=== PATIENT | female | born 1995 | race Hispanic/Latino ===

== ENCOUNTER 2016-08-03 23:46 | Inpatient (IN) | payer OTHER ==
[~2016-08-03] VITALS: Ht 167.6 cm; Wt 98.9 kg
[2016-08-04] MEDS ORDERED: Lactated Ringer's 1,000 ML IV SCH (00:42)
[2016-08-04] MEDS ORDERED: Penicillin G K Inj 5,000,000 UNITS in Dextrose 5% Minibag Plus 100 ML IV ONE (01:30)
[2016-08-04] MEDS ORDERED: Ondansetron 2 mg/mL 2 mL Inj IVPUSH PRN (01:30)
[2016-08-04] MEDS ORDERED: fentaNYL-PF 50 mCg/mL 2 mL Inj IVPUSH PRN (01:30)
[2016-08-04] MEDS ORDERED: Carboprost 250 mCg/mL Inj IM PRN (01:30)
[2016-08-04] MEDS ORDERED: Oxytocin 10 Unit/mL Inj IM PRN (01:30)
[2016-08-04] MEDS ORDERED: Oxytocin 30 Units/500 mL LR 30 UNITS in IV Premix 1 EACH IV PRN (01:30)
[2016-08-04] MEDS ORDERED: Hemorrhage Kit, Post Partum XX ONE (01:30)
[2016-08-04] MEDS ORDERED: Methylergonovine 0.2 mg/mL Inj IM PRN (01:30)
[2016-08-04] MEDS ORDERED: Lactated Ringer's 1,000 ML IV PRN (01:30)
[2016-08-04] MEDS ORDERED: Sodium Chloride LOK Flush 10 mL Syringe IVFLUSH PRN (01:30)
[2016-08-04 01:57] LABS: Mean Corpuscular Hemoglobin 25.2 pg (27.0-35.0); Mean Corpuscular Volume 80.1 fL (81-100)
[2016-08-04] MEDS ORDERED: Hemorrhage Kit, Post Partum XX PRN (02:25)
[2016-08-04] MEDS: Misoprostol 25 mCg/0.25 Tablet VAGINAL SCH ×4 (02:30→16:13)
[2016-08-04] MEDS: Penicillin G K Inj 3,000,000 UNITS in IV Premix 1 EACH IV SCH ×5 (05:58→22:06)
[2016-08-04] MEDS: Lactated Ringer's 1,000 ML IV SCH ×3 (06:30→22:06)
--- NOTE | 2016-08-04 10:10 | HP ---
[address] [address] HISTORY AND PHYSICAL PATIENT: REJI ALLAN : 1995 MR#: [id number] ADMIT: 08/04/2016 JOB ID: [id number] This is an obstetrical patient of Dr. Hampton for whom I am tobacco conditioner. CHIEF COMPLAINT: I think I broke my water broke. SUBJECTIVE: A 21-year-old primiparous patient of Dr. Hampton presents to Labor and Delivery complaining that she has been leaking clear fluid for a couple of days since August 01 and in the last 3 or 4 hours she has started leaking a lot more of the fluid and so she came in for evaluation and in triage she was found to be ROM positive on testing. Her cervix is 1 cm, 60% effaced, -3 station, vertex position, and she was not marta at all. heart tracing was category 1 and so she was admitted for expectant management and induction with premature rupture of membranes. PAST MEDICAL HISTORY: Entirely unremarkable. PAST SURGICAL HISTORY: Significant for tonsillectomy and a breast lump excision and tonsillectomies in 2014. Breast lump excision was in 2011. OBSTETRICAL HISTORY: This is a primiparous patient fairly unremarkable. Her blood type is O-positive. She is rubella nonimmune. Serology is non-reactive. She was negative for hepatitis B and HIV and antibody screen. Hematocrit was 35.6 at 28 weeks. She had an A1c done at the beginning of the which was 5.5. Chlamydia and gonorrhea tests were negative. GBS test done on July 05 was positive. She had a 3 hour glucose tolerance test done at 28 weeks which was negative. Her obstetrical course is complicated with being obese with the initial BMI of 37.8, but she has done a good job and has not gained very much weight throughout the course of this only 5 or 10 pounds or so. GYNECOLOGICAL HISTORY: Unremarkable. FAMILY HISTORY: Fairly insignificant with no history of diabetes in her family or hypertension or congenital defects. SOCIAL HISTORY: Patient lives in [place] with her of 1-1/2 years. She is currently unemployed. She is a nonsmoker, having never smoked, and does not drink any alcohol and denies other drug use. ALLERGIES: The patient has no known drug allergies. MEDICATIONS: Patient is taking vitamins daily, also has just finished a course of amoxicillin for a UTI. REVIEW OF SYSTEMS: The patient denies any chest pain, palpitations, or shortness of breath. No recent illness. No significant headaches, no blurry vision, no significant swelling in her feet. She did have a recent urinary tract infection that was being treated with amoxicillin, and she just finished that course of antibiotics. OBJECTIVE: A well-developed, obese woman in no apparent distress. She is afebrile. Vital signs are stable and normal. Lungs are clear to auscultation bilaterally with good air movement. Heart is regular rate and rhythm. No significant murmurs heard. Abdomen is gravid with normoactive bowel sounds. No hepatosplenomegaly. No abnormal masses are palpable. Extremities show no cyanosis, clubbing, or pitting edema and normal deep tendon reflexes. Cervical exam this morning at 7 shows her cervix to now be 1.5 cm, 80% effaced, and -2 station. She has been marta infrequently overnight. heart tracing remained nice and reactive. ASSESSMENT: 1. Premature rupture of membranes. 2. Group B Streptococcus positive status. PLAN: The patient was admitted for induction considering she is really not in labor yet. We do not know how long she has actually been ruptured for. She has been started on penicillin for her group B Strep positive status. I have started her on Cytotec, and she has just had her 2nd dose of Cytotec this morning. I discussed this case with Dr. Putnam this morning and she is in agreement with the plan. I discussed routine expectant management issues and procedures. Also I discussed the potential complications and the usual obstetrical procedures to address them, but also the possible need for surgical care if a becomes needed. I also discussed the possible need for assistance with vacuum extraction and the associated potential complications. All of her questions were answered, and she expressed understanding of these issues and is willing to proceed. Dr. Lee is out of town until tomorrow, August 05, and I would anticipate that the patient will have delivered by tomorrow morning, but we will have to see. If she is still and undelivered, I will probably contact Dr. Lee regarding this. Otherwise I will let him know that she is here and been delivered. He probably will assume care tomorrow. SADI
[2016-08-04] MEDS ORDERED: Oxytocin 30 Units/500 mL LR Premix IV SCH (21:15)
[2016-08-04 22:38] LABS: BASOPHILS % (AUTO) 0.1 % (0-3); EOSINOPHILS % (AUTO) 0.5 % (0-5); MONOCYTES % (AUTO) 9.6 % (4-12); Mean Corpuscular Hemoglobin 25.4 pg (27.0-35.0); Mean Corpuscular Volume 80.1 fL (81-100); NEUTROPHILS % (AUTO) 60.1 % (40-74); Platelet Count 152 bil/L (150-400)
[2016-08-05] MEDS ORDERED: Methylergonovine 0.2 mg/mL Inj IM ONE (01:40)
[2016-08-05] MEDS: Penicillin G K Inj 3,000,000 UNITS in IV Premix 1 EACH IV SCH ×4 (02:10→14:00)
[2016-08-05] MEDS ORDERED: fentaNYL 2 mCg/mL-Bupiv 0.125% 100 ML EPIDURAL SCH (02:40)
[2016-08-05] MEDS ORDERED: Lactated Ringer's 500 ML IV ONE (02:40)
[2016-08-05] MEDS ORDERED: Ondansetron 2 mg/mL 2 mL Inj IVPUSH PRN (02:40)
[2016-08-05] MEDS ORDERED: EPHEDrine Sulfate 50 mg/mL Inj IVPUSH PRN (02:40)
[2016-08-05] MEDS ORDERED: Atropine 1 mg/10 mL (Code) Syringe IVPUSH PRN (02:40)
--- NOTE | 2016-08-05 03:27 | PCM.HPANE ---
Patient Data Date of Service: Aug 05, 2016 Surgeon Admitting Provider:Matias Lee MD Attending Provider:Matias Lee MD Primary Care Physician:Matias Lee MD Other Provider:Alex Ramos Anesthesia Reason for Visit Term Labor TERM LABOR Ht/WT & BMI Weight (Kilograms): 98.8 Body Mass Index 35.2 Allergies Coded Allergies: No Known Allergies (Verified Allergy, Unknown, 01/07/14) Past Anesthesia History Anesthesia History: Denies:: Fam Anesthesia Reaction, Fam Malignant Hypertherm , Malignant Hyperthermia Diabetes History Hx Diabetes?: No MRSA MRSA: No Medications Hypertension Medication: No Home Meds Incl Beta Deyanira: No No Active Prescriptions or Reported Meds History History of ENT Problems?: No Hx of Heart Problems?: No Hx of Respiratory Problem?: No Hx Neurologic Problems?: No Hx of GI Problems?: No Hx of Problems?: No HX of Peritoneal Dialysis: No Female Hx: Denies:: Currently Hx Musculoskeletal Problems?: No Hx of Psycho/Social Problems?: No Hx Surgeries?: No Hx Any Other Health Problems?: No Other History: Denies:: Hospitalization Hx Diabetes: No Hx Alcohol Use: NoHx Substance Use: No Smoking Status: Never Smoker Have You Smoked inLast 12 mo: No Stop/Bang Treated for Sleep Apnea?: No Do You Have a CPAP Machine?: No MARTHA Risk Assessment: Low Risk, <3 Yes Risk Assessment Category Category 1A: Patient has history of documented sleep apnea, and HAS NOT received any narcotic, sedative or anesthesia administration during this stay. Category 1B: Patient has history of documented sleep apnea, and HAS received any narcotic , sedative or anesthesia administration during this stay Category 2: Patient has SUSPECTED Obstructive Sleep Apnea, and HAS received any narcotic , sedative or anesthesia administration during this stay. Category 3: Patient has SUSPECTED Obstructive Sleep Apnea and HAS NOT received narcotic, sedative or anesthesia administration during this stay. Category 4: Outpatient in Procedural Areas with known sleep apnea or who screen positive for High Risk via the STOP/BANG questionnaire. Exam Exam General Appearance: Alert, Oriented X3, Cooperative HEENT/AIRWAY: Neck Movement (OK), Mouth Opening (Wide) Lungs: Normal Air Movement Heart: Regular Rate/Rhythm Meds/Labs/Diagnostics Admission Meds Current Medications Penicillin G Potassium/ Dextrose [id number] units/Premix 50 ml @ 100 mls/hr Q4H IV Last administered on 08/04/16 22:06; Start 08/04/16 at 06:00 Oxytocin/Lactated Ringer's/Premix (Pitocin 30 Units/500 mL LR/ IV Premix) 500 ml @ 0 mls/hr Q0M IV Last administered on 08/04/16 22:07; Start 08/04/16 at 21 :15 Labs Test 08/04/16 22:30 White Blood Count 8.0th/mm3 (3.8-10.1) Red Blood Count 3.97mil/mm3 (3.90-5.20) Hemoglobin 10.1g/dL (12.0-15.6) Hematocrit 31.8% (35.0-46.0) Mean Corpuscular Volume 80.1fL (81-100) Mean Corpuscular Hemoglobin 25.4pg (27.0-35.0) Mean Corpuscular Hemoglobin Concent 31.8% (32.0-37.0) Red Cell Distribution Width 14.3% (12.3-15.4) Platelet Count 152bil/L (150-400) Neutrophils (%) (Auto) 60.1% (40-74) Lymphocytes (%) (Auto) 29.5% (14-46) Monocytes (%) (Auto) 9.6% (4-12) Eosinophils (%) (Auto) 0.5% (0-5) Basophils (%) (Auto) 0.1% (0-3) Plan Impression Patient chart reviewed, patient interviewed and anesthestic plan with risks, benefits, and alternatives discussed, and informed consent obtained. NPO Status: L&D Protocol ASA Physical Status: ASA2 Mod Systemic Disease Anesthetic Plan: Epidural Bene/Risks/Altern/Consents: Yes HP Complete Prior to Induction: Yes Santy Cronin MD Aug 05, 2016 02:40
[2016-08-05] MEDS: Lactated Ringer's 1,000 ML IV SCH ×4 (07:06→12:31)
[2016-08-05] MEDS ORDERED: Mineral Oil-Light (Sterile) 25 mL TOPICAL PRN (07:45)
--- NOTE | 2016-08-05 08:01 | PROG NOTE ---
[address] [address] PROGRESS NOTE PATIENT: REJI ALLAN : 1995 MR#: [id number] ADMIT: 08/04/2016 JOB ID: [id number] DATE: SUBJECTIVE: Please see my admission H and P for details of her admitting circumstances. Her labor course has proceeded very slowly over the last 24 hours, although it has finally picked up and seems to be doing fine. She was 2 cm or so yesterday about noon, 80% effaced. When she got her 3rd dose of Cytotec at 4-5, she was about the same, 2 cm, 80%, with a Stein score of 6-7, so she received one more dose of Cytotec. Later on in the evening at about 10 o'clock, she was 3 cm and 80%, with a Stein score of 9, and so Pitocin was started to augment her labor. heart tracing briefly was tachycardic in the 170s for about 30 seconds, but then settled down and has remained in the normal range since, and has been nice and reactive. A CBC was checked on mom and was entirely unremarkable. Mom's vital signs have remained stable throughout, with no fevers. There was an episode about 2 o'clock in the morning where she had an apparent fever, but she had been in the bath, and it was assumed that the bath water was too hot. Her temperature came down nicely and has remained normal since. They had some problems with the IV infiltrating, and the IV was replaced at about two in the morning and Pitocin was about 6 milliunits. She started requesting an epidural, and this was placed around 3:30 or so, with excellent results. This morning at about 0600, she was noted to have a few earlies, was checked and was 7 cm with some light mac. I came in and checked her at about seven this morning and she is 8 cm, 0 to +1 station, completely effaced, marta about every 2-3 minutes. heart tracing remains nice and reactive although, she still has earlies with each contraction. Again, the patient remains afebrile, with normal vital signs, although her blood pressure is a little bit high, although she is pretty uncomfortable with pelvic pressure. ASSESSMENT/PLAN: Intrauterine at 40-6/7 weeks estimated gestational age, now in active labor and getting close to completely dilated. It is unclear how long she has had rupture of membranes, and we are watching this very closely. If she develops any fever, we will start her on antibiotics. Otherwise will just monitor very closely. I have discussed this case with Dr. Pimentel, who is on-call today.
[2016-08-05] MEDS: Sodium Chloride LOK Flush 10 mL Syringe IVFLUSH SCH ×2 (08:30→16:30)
[2016-08-05] MEDS ORDERED: 0.9% Sodium Chloride 250 ML ONE (13:28)
[2016-08-05] MEDS ORDERED: Measles-Mumps-Rubella Vaccine 0.5 mL Inj SUBQ ONE (13:55)
[2016-08-05] MEDS ORDERED: Witch Hazel-Glycerin Pads TOPICAL PRN (13:55)
[2016-08-05] MEDS ORDERED: Oxytocin 10 Unit/mL Inj IM PRN (13:55)
[2016-08-05] MEDS ORDERED: Hemorrhage Kit, Post Partum XX ONE (13:55)
[2016-08-05] MEDS ORDERED: Methylergonovine 0.2 mg/mL Inj IM PRN (13:55)
[2016-08-05] MEDS ORDERED: LANOlin HPA 7 Gm Ointment TOPICAL PRN (13:55)
[2016-08-05] MEDS ORDERED: Lactated Ringer's 1,000 ML IV SCH (13:55)
[2016-08-05] MEDS ORDERED: Carboprost 250 mCg/mL Inj IM PRN (13:55)
[2016-08-05] MEDS ORDERED: Oxytocin 30 Units/500 mL LR 30 UNITS in IV Premix 1 EACH IV SCH (13:55)
[2016-08-05] MEDS ORDERED: Benzocaine (Dermoplast) 20% 60 Gm Spray TOPICAL PRN (13:55)
[2016-08-05] MEDS: oxyCODONE-Acetamin 5-325 mg Tablet PO PRN (17:41)
--- NOTE | 2016-08-05 20:20 | PROG NOTE ---
[address] [address] PROGRESS NOTE PATIENT: REJI ALLAN : 1995 MR#: [id number] ADMIT: 08/04/2016 JOB ID: [id number] CORRECTED REPORT: DATE: 08/05/16 The patient had a spontaneous vaginal delivery, as described below. Please see my admission H and P for details as well as the subsequent progress note. Her labor progress was slow but steady and eventually she was found to be completely dilated at 10:27 this morning. The baby's head was in an occiput anterior position at +1 station and completely dilated and effaced and began pushing. Some mild meconium-stained amniotic fluid had been noted, so the technical spec was called to attend the delivery as well. heart tracing remained reactive and reassuring, although did have early variables with each contraction. Demonstrated head compression but had good recovery and was unremarkable between contractions. Patient was comfortable with an epidural. The patient had pushed for approximately 30 or 40 minutes or so, and then I was called to attend the delivery because things were getting closer, and she continued pushing and eventually delivered the baby's head. A nuchal cord was noted x2 and this was reduced manually without difficulty, but difficulty was encountered, delivering the rest of the baby's head. I would say there was about 40 seconds of shoulder dystocia and then the baby's delivery was completed over an intact perineum. The baby was placed upon mom's tummy and was not actively breathing and was purple and so the cord was cut and clamped immediately the and the baby was given to Pediatrics to attend to. There was terminal meconium noted after the baby was delivered. The delivery of the baby was completed at 1210. I attempted to deliver the placenta in the normal way, but it was adhered tightly to the anterior wall of the uterus. After waiting a good 20 minutes or so, I got more aggressive with trying to provide gentle traction on the umbilical cord with fundal massage, but it still did not release. I put a new sterile glove upon my right hand and tried to manually extract the placenta from the uterus and was not successful largely because this was very uncomfortable for the patient since the epidural anesthesia had waned. I discontinued my efforts and called Obstetrics to come and help me with this. Dr. Pimentel came and was able to successfully manually extract the placenta and it appeared to be intact. The placenta was delivered spontaneously and intact at 13:02. The placental delivery was completed at 13:02 and the placenta appeared to be intact and the umbilical cord was three-vessel. During the time after the baby was born and before the placenta was delivered and then afterwards, she had significant hemorrhage. It improved substantially once the placenta was out and the uterus was firm. She was given Pitocin in her IV as well as a dose of Methergine and hemostasis was obtained. Examination of her cervix and her vaginal meyer revealed no significant perineal lacerations. There was a superficial sidewall laceration on the patient's right side that was not bleeding actively and was left to spontaneously heal. Estimated blood loss was 700 cc. This was a baby boy with Apgars of 2 and 7, weight of 9 pounds or 4071 g. hemorrhage was treated with the medications mentioned above as well as we started running lactated Ringer's 2 L aggressively wide open and yet the patient still was getting very pale and starting to not communicate as well and was getting very groggy. Her blood pressure dropped down to very low. The lowest was 67 over about 30 with heart rate that was elevated at 130s. Aggressive rehydration was given with lactated Ringer's and emergency blood transfusion was ordered and she was provided with 1 unit of O-negative blood emergently. This was given at about 140. About that time, her blood pressure was improving up into the 80s to 90s systolically and diastolically in the 60s with an improved heart rate down in 115-120 range. She was starting to mentate more clearly and was able to communicate more normally and was not quite as pale. Hemoglobin and hematocrit was obtained at 13:31 which was markedly low at 2.1 for hemoglobin and hematocrit was 6.8. This was repeated and results about 30 minutes later showed a hemoglobin of 5.2 and hematocrit of 16.3. This seemed more consistent with the clinical picture. Plans were to provide one more unit of blood and this will be cross-matched blood and recheck hematocrit again 2 hours after the blood transfusion is complete. I have come back to see the patient a couple of hours later, and she is doing much better and is able to interact appropriately with me and with her multiple family members present. She is currently receiving a 2nd unit of blood and will complete that and recheck hematocrit as mentioned. ASSESSMENT AND PLAN: Status post spontaneous vaginal delivery with multiple complications to include the presence of meconium in her amniotic fluid, delivery of the baby with a nuchal cord x2 as well as shoulder dystocia and then a prolonged 3rd stage of labor that required manual removal of the placenta, premature and prolonged rupture of membranes of three days or so and then, lastly, the hemorrhage of approximately 700 cc and then subsequent transfusion with 2 units of blood, one emergently with O negative blood and the 2nd one with crossmatched blood. Will monitor the patient very closely. She does not appear to be having any active bleeding at this time and recheck hematocrit again in the morning. Corrected by BD 10/17/16 11:30 am- date edit
[2016-08-05 20:27] LABS: Mean Corpuscular Hemoglobin 26.6 pg (27.0-35.0); Mean Corpuscular Volume 81.1 fL (81-100)
[2016-08-06] MEDS: oxyCODONE-Acetamin 5-325 mg Tablet PO PRN ×4 (00:30→22:00)
[2016-08-06 06:51] LABS: Mean Corpuscular Hemoglobin 26.5 pg (27.0-35.0); Mean Corpuscular Volume 82.1 fL (81-100)
--- NOTE | 2016-08-06 14:23 | PROG NOTE ---
[address] [address] PROGRESS NOTE PATIENT: REJI ALLAN : 1995 MR#: [id number] ADMIT: 08/04/2016 JOB ID: [id number] DATE: 08/06/2016 SUBJECTIVE: The patient has no acute complaints and is generally feeling much better than yesterday. The patient also reports decreasing lochia and bleeding. She reports no significant perineal discomfort and no breast concerns or complaints at this time. OBJECTIVE: Well-developed, well-nourished woman in no apparent distress. Her vital signs are normal and she remains afebrile. Lungs are clear to auscultation bilaterally with good air movement. Heart is regular rate and rhythm. No significant murmurs heard. Abdomen is soft, nontender, with normoactive bowel sounds. Uterus is firm and below the umbilicus. Extremities show no significant or pitting edema and normal deep tendon reflexes. General: The patient's color looks much better than yesterday and she is mentating normally. Hematocrit this morning is low as expected at 24.8. This has dropped a little bit from yesterday evening after her blood transfusion when it was 28.4. ASSESSMENT AND PLAN: Status post spontaneous vaginal delivery approximately 24 hours ago. The patient is doing well at the present time and much better than yesterday. She had significant hemorrhage and received 2 units of blood. Her hematocrit before the blood transfusion had dropped down to 16.3. Hematocrit checked after the 2 units had increased up to 28.4. She has had no further significant bleeding at all and clinically is much improved, mentating normally and with good color. Hematocrit this morning has dropped a little bit as expected to 24.8. I do not anticipate that her blood counts will drop any more or at least not significantly more. Will just monitor her clinically. I discussed this with the patient and her family and they concur and we will defer any further blood draws unless there is a change that is concerning in her clinical picture. We will monitor closely overnight and see her again in the morning. I anticipate if she is doing very well that we will be able to discharge her tomorrow.
--- NOTE | 2016-08-07 07:48 | PCM.DIOB ---
Obstetrical Disch Instruction Date of Service: Aug 07, 2016 Dates of Hospitalization Date of Hospital Admission Aug 04, 2016 at 00:30 Providers Admitting Physician: Matias Lee MD Primary Care Physician: Matias Lee MD Attending Physician: Matias Lee MD Discharge Diagnosis Discharge Diagnosis s/p 08/05/16 at Term; Post Hemorrhage Problems: Diet Discharge Diet: No restrictions Activity Discharge Activity-General: Pelvic Rest for 6 weeks, Try not to overdue, Be up and about Dressing and Incisional Care Hygiene: May shower Additional Instructions Discharge Instructions Take your Iron supplements daily; f/u with Dr. Lee if you have any increased bleeding or other concerns Follow Up Plan Follow Up Plan f/u with Dr. Lee in 6 weeks and as needed Follow-up Provider (F9): Matias Lee MD Follow-up appointment: Weeks (six) Call your provider for: Fever or Chills, Shortness of breath, Heavy vaginal bleeding, Heavy bleeding, Epigastric pain, Excessive constipation, Vaginal discomfort, Red painful breasts Additional Information D/C Rx: Percocet prn; Colace BID prn; Iron supplements Steven Ferrell MD Aug 07, 2016 07:48
[2016-08-07] MEDS ORDERED: OXYC1TAB24 PO (07:52)
[2016-08-07] MEDS ORDERED: FERR-74 PO (07:52)
[2016-08-07] MEDS ORDERED: DOCU250C2 PO (07:52)
--- NOTE | 2016-08-07 08:34 | DIS ---
[address] [address] DISCHARGE SUMMARY PATIENT: REJI ALLAN : 1995 MR#: [id number] ADMIT: 08/04/2016 JOB ID: [id number] DIS: 08/07/2016 DISCHARGE DIAGNOSIS: 1. Spontaneous vaginal delivery at term. 2. Premature and prolonged rupture of membranes. 3. hemorrhage. HISTORY AND PHYSICAL: Please see my admission H and P for details. CONSULTATION: Dr. Pimentel was consulted because of retained placenta. He came in and was able to manually remove the placenta. Please see my notes regarding that. PROCEDURES: The patient had a spontaneous vaginal delivery on August 05. Please see my delivery note for details. The patient had subsequent 2 units of blood transfused after having a hemorrhage. Again see my delivery note for details. HOSPITAL COURSE: The patient was admitted at term with rupture of membranes. It was unclear how long she had been ruptured for, possibly up to two days. She was also GBS positive and so IV penicillin was started in a routine manner. She received Cytotec dosages four times to help ripen her cervix and then Pitocin was started to induce her labor. She moved slowly along and eventually was completely dilated and was able to deliver the baby vaginally. See my delivery note for details. There were a number of complications to include brief shoulder dystocia as well as retained placenta that just had a difficult time getting out and we had to manually remove it. Then after that, we had problems with hemorrhage. The patient was treated aggressively with IV fluid resuscitation as well as received 2 units of blood. Her hematocrit improved dramatically from a low of 16.3 up to 28.4, and then on August 06 dropped down a little bit as would be expected at 24.8. She clinically remained stable after that. Further hematocrits were not checked. She remained afebrile throughout her hospitalization. Her vital signs were certainly abnormal during her hemorrhage but improved and were stable and normal afterwards. DISCHARGE EXAMINATION: Shows her vital signs to be normal. Lungs are clear to auscultation bilaterally with good air movement. Heart is regular rate and rhythm without murmur and abdomen is benign with uterus that is firm and below the umbilicus. Extremities showed no significant edema. Normal deep tendon reflexes. The patient has no acute complaints at all and is able to interact normally and move around the room without problems. ASSESSMENT AND PLAN: Status post spontaneous vaginal delivery two days ago and hemorrhage. She is doing very well. Seems to be recovering nicely. PLAN: Will plan on discharging today and have her followup with Dr. Lee in six weeks, otherwise as needed. She, of course, will be seeing him when she brings her baby in to see him, so he will be able to eyeball her in the interim. DISCHARGE MEDICATIONS: Included: 1. Percocet 5/325, given 20 tablets to use p.r.n. for breakthrough pain. 2. She is also told she could use Tylenol as needed to help with her discomfort. As she is no longer having any significant bleeding, she might find that ibuprofen is more effective than the Tylenol. And if she is still having trouble, she could use the Percocet sparingly as needed. 3. She is also told to take iron supplements 1-2 a day for at least the next couple of weeks. 4. Also given docusate sodium 250 mg to take 1-2 as needed for constipation.
[2016-08-07 11:22] VITALS: BP 127/65; PULSE 90; RESP 12
--- NOTE | 2016-08-07 14:10 | NUR ---
pt has been up and walking halls x 2 w/ assistance. She felt nauseated at 1110 after eating some oatmeal and was given Zofran w/ good relief of nausea. She ate some of her general diet at lunch and saved the rest in the refridgerator. She has been sipping on her Miralax. Plan: is for her to stay overnight- will re-evaluate tomorrow for possible discharge. Addendum: 08/07/16 at 1415 by JUNI ESTRELLA RN Amended: Links added.
[2016-08-07] MEDS ORDERED: Bupivacaine-MPF 0.25% 30 mL Inj ONE (15:49)
== END 2016-08-07 15:50 | disposition home or self-care (01) | DRG 767 ==
LOC: FBCO 23:46 → FBC 08-04 00:30
PROVIDERS: ADMIT Family Medicine; ATTEND Family Medicine
PROC: 10D17ZZ Extraction of Products of Conception, Retained, Via Natural or Artificial Opening (ICD-10-PCS; principal; 2016-08-05)
PROC: 10E0XZZ Delivery of Products of Conception, External Approach (ICD-10-PCS; 2016-08-05)
PROC: 30233N1 Transfusion of Nonautologous Red Blood Cells into Peripheral Vein, Percutaneous Approach (ICD-10-PCS; 2016-08-05)
DX: O72.0 Third-stage hemorrhage (principal); O42.12 Full-term premature rupture of membranes, onset of labor more than 24 hours following rupture; O69.82X0 Labor and delivery complicated by other cord entanglement, without compression, not applicable or unspecified; O66.0 Obstructed labor due to shoulder dystocia; O99.824 Streptococcus B carrier state complicating childbirth; O77.0 Labor and delivery complicated by meconium in amniotic fluid; O99.213 Obesity complicating pregnancy, third trimester; E66.09 Other obesity due to excess calories; Z3A.40 40 weeks gestation of pregnancy

== ENCOUNTER 2016-08-25 03:42 | Emergency (ER) | payer OTHER ==
[~2016-08-25] VITALS: Ht 165.1 cm; Wt 84.1 kg
[~2016-08-25 03:42] MED LIST: DOCU250C2 PO; FERR-74 PO; OXYC1TAB24 PO
[2016-08-25 03:46] VITALS: BP 126/81; PULSE 70; RESP 15; O2SAT 100
--- NOTE | 2016-08-25 04:06 | ED.REPORT ---
HPI-General Illness Date of Service Aug 25, 2016 ED Provider: Roosevelt Cowart MD Patient is a 21 year old female who delivered a healthy baby two weeks ago and reports feeling generalized weakness and lightheadedness when lying in bed an hour ago. She had a normal, natural and received a blood transfusion afterwards. She is still experiencing light vaginal bleeding and spotting following the . She is currently breast feeding. She denies any cough, sore throat, nasal congestion, and ear ache. Nursing Notes Stated Complaint: WEAKNESS Chief Complaint: General Complaint Nursing Notes Reviewed: Yes Allergies: Coded Allergies: No Known Allergies (Verified Allergy, Unknown, 01/07/14) Scheduled Ferrous Sulfate (Feosol) 325 Mg Tablet 325 MG PO 1-2 times per day Scheduled PRN Docusate Sodium (Docusate Sodium) 250 Mg Capsule 250 MG PO BID PRN PRN For Constipation oxyCODONE-Acetaminophen 5-325 mg (oxyCODONE-Acetaminophen 5-325 mg) 1 Each Tablet 1-2 TAB PO Q4H PRN PRN For Pain General Time Seen by MD: 04:02 Chief Complaint Weakness Hx Obtained From: Patient Arrived By: Walk-in Sudden in Onset?: Yes Onset Occurred: Just prior to arrival Symptom Duration: Since onset Severity: Current: No pain currently Recent Healthcare: No recent doctor visit, No recent hospitalization Similar Sx Previous: No Past Medical History Past Medical History received a blood transfusion following a healthy delivery on 08/05/16 Past Surgical History denies Smoking History Never Smoker Social History Other Social History: Good social support, Ambulatory Status Independent Review of Systems Full Review of Systems Ears / Nose / Throat: Denies: Earache bilateral, Nasal congestion, Sore throat Respiratory: Denies: Non-productive cough Female: Reports: Vaginal bleeding - abnl Neurologic: Reports: Lightheaded, Weakness Complete sys rev & neg: except as marked. Physical Exam Vital Signs Vital Signs Date Time Temp Pulse Resp B/P Pulse Ox O2 Delivery O2 Flow Rate FiO2 08/25/16 06:23 36.8 64 16 103/64 98 Room Air 08/25/16 03:46 36.4 70 15 126/81 100 Room Air Initial VS: Reviewed, Vital signs normal Head / Eyes: Atraumatic, Normocephalic, PERRL Neck: Supple, Non-tender, Full range of motion Respiratory: Breath sounds normal, Clear to auscultation, No respiratory distress Cardiovascular: Regular rate & rhythm, Heart sounds normal, Intact distal pulses Abdomen / GI: Soft, Non-tender, No guarding, No rebound, No distention Back: No CVA tenderness Lymphatic: No lymphadenopathy Extremities: Vascular intact, Neuro intact, No swelling, No tenderness Skin: Warm, Dry, No cyanosis Neurologic: Alert, Oriented, Nonfocal Psychiatric: Mood/affect normal, Behavior normal, Normal thought content General/Constitutional: Awake, Alert, No acute distress, Well appearing, Well developed, Well hydrated, Well nourished, Cooperative, Not toxic appearing Appearance / Presentation: Positive: Pale Interpretation & Diagnostics Lab Results Interpretation Result Diagram: 08/25/1641108/25/16 041 Test 08/25/16 04:12 White Blood Count 7.2th/mm3 (3.8-10.1) Red Blood Count 4.17mil/mm3 (3.90-5.20) Hemoglobin 10.9g/dL (12.0-15.6) Hematocrit 34.5% (35.0-46.0) Mean Corpuscular Volume 82.7fL (81-100) Mean Corpuscular Hemoglobin 26.1pg (27.0-35.0) Mean Corpuscular Hemoglobin Concent 31.6% (32.0-37.0) Red Cell Distribution Width 14.6% (12.3-15.4) Platelet Count 315bil/L (150-400) Neutrophils (%) (Auto) 45.5% (40-74) Lymphocytes (%) (Auto) 43.3% (14-46) Monocytes (%) (Auto) 8.3% (4-12) Eosinophils (%) (Auto) 2.5% (0-5) Basophils (%) (Auto) 0.3% (0-3) Urine Color Straw (YELLOW) Urine Appearance Hazy (CLEAR,HAZY) Urine pH 7.0 (5.0-8.0) Urine Specific Agate 1.010 (1.003-1.035) Urine Protein Negativemg/dL (NEG,TRACE) Urine Glucose (UA) Negativemg/dL (NEGATIVE) Urine Ketones Negativemg/dL (NEGATIVE) Urine Occult Blood Moderate (NEGATIVE) Urine Nitrite Negative (NEGATIVE) Urine Bilirubin Negative (NEGATIVE) Urine Urobilinogen Normalmg/dL (NORMAL) Urine Leukocyte Esterase Large (NEGATIVE) Urine RBC 3-10/hpf (0-2) Urine WBC 11-50/hpf (0-5) Urine Epithelial Cells Moderate/hpf (NONE-MOD) Urine Crystals None seen (NONE SEEN) Urine Bacteria None/hpf (NONE-FEW) Urine Hyaline Casts None/lpf (NONE) Urine Granular Casts None seen (NONE SEEN) Urine Waxy Casts None seen (NONE SEEN) Urine Red Blood Cell Casts None seen (NONE SEEN) Urine White Blood Cell Casts None seen (NONE SEEN) Urine Mucus None seen (None Seen) Urine Trichomonas None seen (NONE SEEN) Urine Yeast None (NONE SEEN) Urine Culture Reflexed Indicated Hold Urine Received (Received) Sodium Level 138mEq/L (134-144) Potassium Level 3.9mEq/L (3.5-5.2) Chloride Level 100mEq/L (97-108) Carbon Dioxide Level 24mmol/L (18-29) Blood Urea Nitrogen 10mg/dL (6-20) Creatinine 0.63mg/dL (0.57-1.00) Estimat Glomerular Filtration Rate 173mL/min (>59) Glucose Level 95mg/dL (60-99) Calcium Level 9.3mg/dL (8.5-10.1) Magnesium Level 1.9mg/dL (1.6-2.6) Total Bilirubin 0.2mg/dL (0.0-1.2) Aspartate Amino Transf (AST/SGOT) 21U/L (0-50) Alanine Aminotransferase (ALT/SGPT) 18U/L (0-32) Alkaline Phosphatase 131U/L (25-150) Total Protein 7.2g/dL (6.4-8.4) Albumin 4.1g/dL (3.4-5.0) Lipase 30U/L (13-60) Lab Results Interpretation: 11-50 white cells per high-power field, culture pending. H/H 10.9/34.5, improved from previous. Re-Eval/Medical Decision Med Decision/Clinical Course 21-year-old female who is approximately 3 weeks . She had hemorrhage requiring transfusion. She is now weak and pale. Her H&H is actually much improved. She does have a urinary tract infection and will be treated for that. Follow-up with her regular doctor. Time of Eval: 04:39 Re-Evaluation/Progress Note: Pt rechecked. Informed of diagnosis of UTI. All questions are addressed. Pt understands and agrees with the treatment plan. Return to the ED warnings given. Counseled Regarding: Diagnosis, Lab results, Need for follow-up, When/why to return to ED Discharge & Departure Primary Impression: Urinary tract infection Urinary tract infection type: site unspecified Hematuria presence: without hematuria Qualified Code: N39.0 - Urinary tract infection, site not specified Disposition: Home Discharge Condition All VS Reviewed: Yes Condition: Stable Patient Instructions: Urinary Tract Infection in Women (ED) Additional Instructions: Your blood count is dramatically improved. Your urine is infected. Urine culture is pending. Nitrofurantoin 100 mg by mouth twice a day, #20 prescription dispensed. Drink plenty of fluids. Follow-up with your regular doctor as needed for persistent symptoms, or to get your urine rechecked in 2 weeks. Referrals: Matias Lee MD (PCP) Steven Ferrell MD (Family) Temitope Attestation Portions of this note were transcribed by Diana Mackenzie. I, Dr. Cowart personally performed the history, physical exam and medical decision-making; I reviewed and confirmed the accuracy of the information in the transcribed note. Signed by: Temitope Baez, 08/25/16 0601 copies to: Matisa Lee MD; Steven Ferrell MD, Howard L MD Aug 25, 2016 04:06 DIANA MACKENZIE Aug 25, 2016 04:41
[2016-08-25 04:26] LABS: BASOPHILS % (AUTO) 0.3 % (0-3); EOSINOPHILS % (AUTO) 2.5 % (0-5); MONOCYTES % (AUTO) 8.3 % (4-12); Mean Corpuscular Hemoglobin 26.1 pg (27.0-35.0); Mean Corpuscular Volume 82.7 fL (81-100); NEUTROPHILS % (AUTO) 45.5 % (40-74); Platelet Count 315 bil/L (150-400)
[2016-08-25 04:40] LABS: Magnesium 1.9 mg/dL (1.6-2.6)
[2016-08-25 06:23] VITALS: BP 103/64; PULSE 64; RESP 16; O2SAT 98
[2016-08-25 06:28] LABS: APPEARANCE,URINE HAZY (CLEAR,HAZY); COLOR,URINE STRAW (YELLOW)
[2016-08-25 06:29] LABS: OCCULT BLOOD,URINE MODERATE (NEGATIVE); UROBILINOGEN,URINE NORMAL (NORMAL)
[2016-08-25] MEDS ORDERED: _Nitrofurantoin Macrocrystal 100 mg Capsule PO SCH (08:30)
== END 2016-08-25 06:18 | disposition home or self-care (01) ==
LOC: SED 03:42
DX: O86.20 Urinary tract infection following delivery, unspecified (principal); O72.2 Delayed and secondary postpartum hemorrhage; O99.89 Other specified diseases and conditions complicating pregnancy, childbirth and the puerperium; R42 Dizziness and giddiness; R53.1 Weakness

== ENCOUNTER 2016-10-31 10:18 | Emergency (ER) | payer OTHER ==
[~2016-10-31] VITALS: Ht 165.1 cm; Wt 85.9 kg
[2016-10-31 10:27] VITALS: BP 130/79; PULSE 76; RESP 12; O2SAT 98
--- NOTE | 2016-10-31 11:27 | ED.REPORT ---
HPI-Back Pain Under 40 Date of Service Oct 31, 2016 ED Provider: Leodan Olivo MD 21 y/o female with no pertinent hx presents to the ED complaining of chest pain , which radiates to her back, onset 1 week ago. Her pain is the worst in the morning and gradually improves throughout the day. Pt denies fever, cough, reflux, headache, SOB, hemoptysis, vomiting, nausea and extremity swelling. She takes hormones for control. Nursing Notes Stated Complaint: CHEST AND BACK PAIN Chief Complaint: Back Pain or Injury Nursing Notes Reviewed: Yes Allergies: Coded Allergies: No Known Allergies (Verified Allergy, Unknown, 01/07/14) Scheduled Ferrous Sulfate (Feosol) 325 Mg Tablet 325 MG PO 1-2 times per day Scheduled PRN Docusate Sodium (Docusate Sodium) 250 Mg Capsule 250 MG PO BID PRN PRN For Constipation oxyCODONE-Acetaminophen 5-325 mg (oxyCODONE-Acetaminophen 5-325 mg) 1 Each Tablet 1-2 TAB PO Q4H PRN PRN For Pain General Time Seen by MD: 11:25 Chief Complaint Other (Chest pain) Hx Obtained From: Patient Arrived By: Walk-in Sudden in Onset?: Yes Onset Occurred: 1 week ago Symptom Duration: Since onset Severity: Current: Mild Severity: Maximum: Moderate Recent Healthcare: Recent doctor visit Similar Sx Previous: No Past Medical History Past Medical History received a blood transfusion following a healthy delivery on 08/05/16 Past Surgical History denies Smoking History Never Smoker Social History Other Social History: Good social support, Ambulatory Status Independent Review of Systems Review of Systems Note: Denies reflux Constitutional: Denies: Chills, Fever Respiratory: Denies: Hemoptysis, Non-productive cough, Shortness of breath Cardiovascular: Reports: Chest pain GI: Denies: Nausea, Vomiting Musculoskeletal: Reports: Back pain, Denies: Extremity swelling Neurologic: Denies: Headache Complete sys rev & neg: except as marked. Physical Exam Initial Vital Signs Vital Signs (First) Date Time Temp Pulse Resp B/P Pulse Ox O2 Delivery O2 Flow Rate FiO2 10/31/16 10:27 36.2 76 12 130/79 98 Room Air Initial VS: Reviewed, Vital signs normal Head / Eyes: Atraumatic, Normocephalic, PERRL ENT: Mucous membranes moist, Conjunctiva normal, No scleral icterus Neck: Supple, Non-tender, Full range of motion Respiratory: Breath sounds normal, Clear to auscultation, No respiratory distress Cardiovascular: Regular rate & rhythm, Heart sounds normal, Intact distal pulses Abdomen / GI: Soft, Non-tender, No guarding, No rebound, No distention Extremities: Vascular intact, Neuro intact, No swelling, No tenderness Skin: Warm, Dry, No cyanosis Psychiatric: Mood/affect normal, Behavior normal, Normal thought content General/Constitutional: Awake, Alert, Cooperative, Not toxic appearing Back: Atraumatic, Full range of motion Neurologic: Oriented X3, Speech NL, No motor deficits, No sensory deficits Neck: Atraumatic, Full range of motion Interpretation & Diagnostics Lab Results Interpretation Test 10/31/16 12:00 10/31/16 12:19 D-Dimer < 0.50mg/L FEU (<0.50) Hold Singh Top Tube Received (Received) Re-Eval/Medical Decision Re-Evaluation/Progress : Time of Eval: 11:25 Re-Evaluation/Progress Note: Pt rechecked. Discussed lab results and diagnosis. Informed the pt of the plan to discharge. Pt understands and agrees with plan. F/U instructions and RTER warning given. All questions addressed. Counseled Regarding: Diagnosis, Lab results, Need for follow-up, When/why to return to ED Discharge & Departure Impression: Primary Impression: Chest pain Chest pain type: unspecified Qualified Code: R07.9 - Chest pain, unspecified Disposition: Home All VS Reviewed: Yes Condition: Stable Patient Instructions: Chest Pain (ED) Additional Instructions: Your labs results were normal, specifically no evidence of pulmonary embolism. Follow up with your Primary Care Physician for further evaluation as needed. Return to the Emergency Department in case of fever, fainting, difficulty breathing, worsening chest pain or any other new or worsening symptoms. Referrals: Matias Lee MD (PCP) Scribe Attestation Portions of this note were transcribed by Anuj Herman and Lobo Kraus. I, Dr. Olivo personally performed the history, physical exam and medical decision-making;I reviewed and confirmed the accuracy of the information in the transcribed note. Signed by Anuj Herman and Lobo Kraus, Scribe. 10/31/16 1240 copies to: Matias Lee MD Risk Factors PERC Rule Exogenous estrogen use PERC Result: PERC rule not satisfied Well's Criteria for PE Well's PE Score: 0-2 pts (low risk 3.6%) Leodan Olivo MD Oct 31, 2016 11:27 Anuj Herman Oct 31, 2016 11:48 LOBO KRAUS Oct 31, 2016 12:34
== END 2016-10-31 12:52 | disposition home or self-care (01) ==
LOC: SED 10:18
DX: R07.9 Chest pain, unspecified (principal)

== ENCOUNTER 2016-11-01 22:26 | Emergency (ER) | payer OTHER ==
[~2016-11-01] VITALS: Ht 165.1 cm; Wt 85.9 kg
[2016-11-01 22:29] VITALS: BP 155/82; PULSE 101; RESP 24; O2SAT 100
[2016-11-01 22:58] LABS: BASOPHILS % (AUTO) 0.2 % (0-3); EOSINOPHILS % (AUTO) 0.8 % (0-5); MONOCYTES % (AUTO) 6.8 % (4-12); Mean Corpuscular Hemoglobin 24.5 pg (27.0-35.0); Mean Corpuscular Volume 77.8 fL (81-100); NEUTROPHILS % (AUTO) 50.6 % (40-74); Platelet Count 304 bil/L (150-400)
[2016-11-01 23:50] VITALS: BP 123/84; PULSE 75; RESP 19; O2SAT 97
[2016-11-02] MEDS ORDERED: ALPRAZolam 0.5 mg Tablet PO ONE
[2016-11-02 01:01] VITALS: BP 123/65; PULSE 94; RESP 11; O2SAT 98
--- NOTE | 2016-11-02 01:16 | ED.REPORT ---
HPI-Chest Pain Under 40 Date of Service Nov 01, 2016 ED Provider: Roosevelt Cowart MD Janice Queen is a pleasant 21-year-old woman with no previous medical problems who presents to the [facility] emergency department with complaint of chest pain that has been occurring for 1 week. She was previously seen here yesterday for same complaint however states today it has gotten worse. She states the pain is currently 8 out of 10, center chest, there is tenderness to palpation, there is radiation to her back, pain is associated with shortness of breath, lightheadedness, feelings of tingling in her arms and legs, states that she feels globally weak. conveys that the weakness began 3 months ago after giving to her only child, which complication of hemorrhage due to retained placenta, necessitating blood transfusions. She denies any weight loss or weight gain, says that she is feeling a lot more cold than normal and often has shakes and shivers throughout the day when she used to not. Yesterday's evaluation included a negative d- dimer, and they deemed the negative evaluation for pulmonary embolism. Currently denies any nausea/vomiting/diarrhea/constipation. States yesterday she had one bowel movement that was looser than normal. Currently no numbness tingling weakness in her arms and scooter legs. Currently not short of breath. Nursing Notes Stated Complaint: CHEST PAIN Chief Complaint: Chest Pain Nursing Notes Reviewed: Yes Allergies: Coded Allergies: No Known Allergies (Verified Allergy, Unknown, 01/07/14) Scheduled Ferrous Sulfate (Feosol) 325 Mg Tablet 325 MG PO 1-2 times per day Scheduled PRN Docusate Sodium (Docusate Sodium) 250 Mg Capsule 250 MG PO BID PRN PRN For Constipation HydrOXYzine HCl (HydrOXYzine HCl) 10 Mg Tablet 10 MG PO BID PRN PRN PRN oxyCODONE-Acetaminophen 5-325 mg (oxyCODONE-Acetaminophen 5-325 mg) 1 Each Tablet 1-2 TAB PO Q4H PRN PRN For Pain General Time Seen by MD: 23:06 Chief Complaint Chest pain Similar Sx Previous: Yes Past Medical History Past Medical History received a blood transfusion following a healthy delivery on 08/05/16 Past Surgical History Tonsillectomy Smoking History Never Smoker Social History Lives with family Alcohol Use: Denies alcohol use Other Social History: Good social support, Ambulatory Status Independent Review of Systems Complete sys rev & neg: except as marked. Physical Exam General: Laying in bed, no apparent distress. HEENT: Normocephalic, atraumatic, EOMI grossly, neck is supple without lymphadenopathy mucous membranes moist. Conjunctivae are pink. Thyroid is symmetric, no palpable nodules. Trachea is midline Cardiovascular: Regular rate and rhythm, no clicks murmurs rubs, peripheral pulses 2/4 equal bilaterally Pulmonary: Clear to auscultation bilaterally, no W/R/R. Abdominal: Soft to palpation, bowel sounds present 4, no hepatosplenomegaly. Negative rebound. Extremities: No edema appreciated. No tenderness, asymmetry. Neuro: Neurologically grossly intact, strength is equal bilaterally upper and lower extremities. MSK: Gait is normal, able to move extremities on their own volition, strength 5 out of 5 equal bilaterally to upper and lower extremities. Tenderness to palpation over left sternal border. Initial Vital Signs Vital Signs (First) Date Time Temp Pulse Resp B/P Pulse Ox O2 Delivery O2 Flow Rate FiO2 11/01/16 22:29 37.1 101 24 155/82 100 11/01/16 23:50 Room Air Initial VS: Reviewed, Vital signs normal Interpretation & Diagnostics Lab Results Interpretation Result Diagram: 11/01/16 2252 11/01/16 2252 Test 11/01/16 22:52 11/01/16 23:56 White Blood Count 8.9th/mm3 (3.8-10.1) Red Blood Count 4.78mil/mm3 (3.90-5.20) Hemoglobin 11.7g/dL (12.0-15.6) Hematocrit 37.2% (35.0-46.0) Mean Corpuscular Volume 77.8fL (81-100) Mean Corpuscular Hemoglobin 24.5pg (27.0-35.0) Mean Corpuscular Hemoglobin Concent 31.5% (32.0-37.0) Red Cell Distribution Width 13.9% (12.3-15.4) Platelet Count 304bil/L (150-400) Neutrophils (%) (Auto) 50.6% (40-74) Lymphocytes (%) (Auto) 41.5% (14-46) Monocytes (%) (Auto) 6.8% (4-12) Eosinophils (%) (Auto) 0.8% (0-5) Basophils (%) (Auto) 0.2% (0-3) Sodium Level 131mEq/L (134-144) Potassium Level 3.5mEq/L (3.5-5.2) Chloride Level 99mEq/L (97-108) Carbon Dioxide Level 23mmol/L (18-29) Blood Urea Nitrogen 12mg/dL (6-20) Creatinine 0.59mg/dL (0.57-1.00) Estimat Glomerular Filtration Rate 186mL/min (>59) Glucose Level 99mg/dL (60-99) Calcium Level 9.0mg/dL (8.5-10.1) Magnesium Level 2.0mg/dL (1.6-2.6) Total Bilirubin < 0.3mg/dL (0.0-1.2) Aspartate Amino Transf (AST/SGOT) 33U/L (0-50) Alanine Aminotransferase (ALT/SGPT) 43U/L (0-32) Alkaline Phosphatase 100U/L (25-150) Troponin T 0.010ug/L (0.0-0.011) Total Protein 7.4g/dL (6.4-8.4) Albumin 4.5g/dL (3.4-5.0) Lipase 31U/L (13-60) Thyroid Stimulating Hormone (TSH) 4.450uIU/mL (0.450-4.500) Free Thyroxine 1.11ng/dL (0.82-1.77) Lab Results Interpretation: Thyroid studies normal Lipase normal Mild hyponatremia ECG Interpretation ECG Interpretation: Normal rate rhythm and axis, no signs of acute infarct or ischemia. ECG Interpretation: Sinus tachycardia 107 beats per minute NC 136 QTC 441. No signs of acute infarct or ischemia. X-Ray Chest Interpretation Chest Xray Interpretation: Mediastinum is normal size. No findings of a cardiopulmonary process. Re-Eval/Medical Decision Med Decision/Clinical Course Patient EKG, chest rate, troponin were all negative for signs of acute coronary syndrome, risk of pulmonary embolism is low, d-dimer yesterday was negative. There is tenderness to palpation over the left sternal border. While discussing with the patient possible causes of her symptoms her heart rate jumped to sinus tachycardia in the 140s touching 150 beats per minute. Stat EKG was performed did not show any ischemia, infarction, or other arrhythmia such as A. fib or a-flutter. Due to hemorrhage, suspicion for Ivis syndrome was exercise, however thyroid studies were normal. Due to location and radiation of the back pancreas was evaluated, it was normal. Continue to have elevated heart rate while in the emergency department, she was given 0.5 mg Xanax, which she said the pain in her chest subsided, and her heart rate improved. Counseled Regarding: Diagnosis, Lab results, Need for follow-up, When/why to return to ED Discharge & Departure Primary Impression: Costochondral chest pain Additional Impression: Anxiety Disposition: Home Discharge Condition All VS Reviewed: Yes Condition: Improved Patient Instructions: Costochondritis (ED) Additional Instructions: Thank you for entrusting us with your care. Please follow-up with Dr. Lee regarding your symptoms. Today we evaluated you for your chest pain, we made sure you are not having a heart attack, we evaluated your thyroid function which was normal, we also address the anxiety felt during today's visit. Based on our findings would feel that the symptoms you are experiencing may be stress related possibly due to previous stress from the hemorrhage you suffered several months ago. Additionally the pain in her chest can be due to overuse of the junctions were your ribs nature sternum this can be caused by taking deeper than normal breaths consistently, or by doing activities with her upper extremities do not previously use to doing such as holding a child. Though we cannot thoroughly diagnose it in the emergency department, I like you to consider being evaluated for posttraumatic stress stemming from a hemorrhage We are giving you a prescription for hydroxyzine. Please take this medication, one pill when you feel the symptoms of the chest pain getting worse, or you are having to breathe more than normal. Please be aware that this medication can cause drowsiness, do not take it if you plan on driving, or need to be alert and awake. Do not take with alcohol. Referrals: Matias Lee MD (PCP) Attending Statement The patient was seen and examined together with Dr. Jerry Vallecillo and I agree with the history, exam and plan as outlined in the note above. copies to: Matias Lee MD, Noah M DO Nov 01, 2016 23:26 Roosevelt Cowart MD Nov 02, 2016 05:12
[2016-11-02] MEDS ORDERED: HYDR-3605 PO (01:18)
[2016-11-02 01:31] VITALS: BP 123/65; PULSE 94; RESP 11; O2SAT 98
--- NOTE | 2016-11-02 06:36 | DRSVH ---
PROCEDURE: X-RAY CHEST ONE VIEW, PORTABLE ([id number]) INDICATIONS: chest pain, radiates to her back TECHNIQUE: One view of the chest was acquired. COMPARISON: None. FINDINGS: Surgical changes and devices: None. Lungs and pleura: No pleural effusions or pneumothorax. Lungs are clear. Mediastinum: Mediastinal contours appear normal. Heart size is normal. Bones and chest wall: No suspicious bony lesions. Overlying soft tissues appear unremarkable. IMPRESSION: No acute cardiopulmonary findings. Dictated by: Neelima Levine M.D. on 11/02/2016 at 6:34 Approved by: Neelima Levine M.D. on 11/02/2016 at 6:34
== END 2016-11-02 01:31 | disposition home or self-care (01) ==
LOC: SED 22:26
DX: R07.1 Chest pain on breathing (principal); F41.9 Anxiety disorder, unspecified